=== PATIENT | female | born 1975 | race Caucasian/White ===

== ENCOUNTER → 2021-03-12 | Outpatient (CLI) | payer BC ==
[~2021-03-12] MED LIST: BACTDSTA; CITA10TA7; LEVO75TA4
[2021-03-12 13:15] LABS: FREE T4 0.83 NG/DL (0.76-1.46); THYROID STIMULATING HORMONE 17.6 uIU/ML (0.358-3.740)
== END ==
LOC: M WUC 10:52
PROVIDERS: ATTEND Physician Assistant
DX: E03.9 Hypothyroidism, unspecified (principal)

== ENCOUNTER 2021-03-23 17:57 | Emergency (ER) | payer BC ==
[~2021-03-23] VITALS: Ht 165.1 cm; Wt 89.4 kg
[2021-03-23 17:58] VITALS: BP 133/69
[2021-03-23] MEDS ORDERED: CITA10TA7 (18:06)
[2021-03-23] MEDS ORDERED: BACTDSTA (18:06)
[2021-03-23] MEDS ORDERED: LEVO75TA4 (18:06)
== END 2021-03-23 21:49 | disposition left against medical advice (07) ==
LOC: M ED 17:57
DX: Z53.21 Procedure and treatment not carried out due to patient leaving prior to being seen by health care provider (principal)